=== PATIENT | female | born 1955 | race Asian ===

== ENCOUNTER → 2024-03-13 | Outpatient (CLI) | payer MEDICARE | END | disposition home or self-care (01) | LOC: RADMN 08:12 | PROVIDERS: ATTEND Family Medicine | DX: M47.26 Other spondylosis with radiculopathy, lumbar region (principal); M25.551 Pain in right hip | CPT/HCPCS: 72100; 73521 ==

== ENCOUNTER 2025-10-06 20:15 | Emergency (ER) | payer MEDICARE, OTHER ==
[~2025-10-06] VITALS: Ht 160 cm; Wt 64.1 kg
[2025-10-06 20:18] VITALS: TEMP 97.7
[2025-10-06 22:30] VITALS: BP 152/82; PULSE 92; RESP 17; O2SAT 97
[2025-10-06] MEDS ORDERED: PRED-554 PO (22:46)
[2025-10-06] MEDS ORDERED: DIPH25CA85 PO (22:46)
== END 2025-10-06 22:54 | disposition home or self-care (01) ==
LOC: EMS 20:15
DX: T78.49XA Other allergy, initial encounter (principal); R21 Rash and other nonspecific skin eruption; E11.9 Type 2 diabetes mellitus without complications; I10 Essential (primary) hypertension; X58.XXXA Exposure to other specified factors, initial encounter
CPT/HCPCS: 99283; 82962; J7512